=== PATIENT | male | born 1995 ===

== ENCOUNTER 2017-04-15 07:03 | Emergency (ER) | payer SELFPAY ==
[2017-04-15 07:26] VITALS: RESP 20
--- NOTE | 2017-04-15 07:41 | C.PDOC ---
History Of Present Illness 21 y/o male presents to ED with c/o left knee pain since yesterday. Patient reports he twisted his knee while playing basketball. Denies any other injuries , weakness, numbness, or other associated symptoms. Time Seen by Provider: 04/15/17 07:23 Chief Complaint (Nursing): Lower Extremity Problem/Injury History Per: Patient History/Exam Limitations: no limitations Onset/Duration Of Symptoms: Days Current Symptoms Are (Timing): Still Present Severity: Mild Recent travel outside of the [place]: No - Hip Description Of Injury: Fell - Knee Description Of Injury: Twisted Past Medical History Reviewed: Historical Data, Nursing Documentation, Vital Signs Vital Signs: Last Vital Signs Temp 98.1 F 04/15/17 08:39 Pulse 79 04/15/17 08:39 Resp 20 04/15/17 08:39 BP 122/69 04/15/17 08:39 Pulse Ox 97 04/15/17 08:39 - Medical History PMH: No Chronic Diseases Family History: States: Unknown Family Hx - Social History Hx Alcohol Use: No Hx Substance Use: No - Immunization History Hx Tetanus Toxoid Vaccination: No Hx Influenza Vaccination: No Hx Pneumococcal Vaccination: No Review Of Systems Except As Marked, All Systems Reviewed And Found Negative. Constitutional: Negative for: Fever, Chills Musculoskeletal: Positive for: Other (left knee pain) Skin: Negative for: Rash Neurological: Negative for: Weakness, Numbness Physical Exam - Physical Exam Appears: Non-toxic, No Acute Distress Skin: Normal Color, Warm, Dry Head: Atraumatic, Normacephalic Extremity: Normal ROM, Tenderness (left lateral ), Capillary Refill (< 2 sec.), No Deformity, No Swelling Extremity: Bilateral: Normal Color And Temperature Pulses: Left Dorsalis Pedis: Normal, Right Dorsalis Pedis: Normal Neurological/Psych: Oriented x3, Normal Motor, Normal Sensation Gait: Steady ED Course And Treatment O2 Sat by Pulse Oximetry: 99 (RA) Pulse Ox Interpretation: Normal - Other Rad No standard instances X-Ray: Interpreted by Me Interpretation: Knee: no fx Progress Note: Left knee x-rays. Luciano bandage applied to affected area Reassessment Condition: Unchanged Disposition Counseled Patient/Family Regarding: Studies Performed, Diagnosis, Need For Followup - Disposition Referrals: [facility] [place] [Outside] [facility] [Outside] Disposition: HOME/ ROUTINE Disposition Time: 08:10 Condition: STABLE Additional Instructions: Follow up with ortho clinc for further evaluation Luciano bandage and ice to affected area Instructions: Knee Sprain (ED) Forms: [employer] (Yakut), Work Excuse - POA Present On Arrival: None - Clinical Impression Clinical Impression: Knee sprain - 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 - Scribe Statement The provider has reviewed the documentation as recorded by the Scribe SM All medical record entries made by the Scribe were at my direction and personally dictated by me. I have reviewed the chart and agree that the record accurately reflects my personal performance of the history, physical exam, medical decision making, and the department course for this patient. I have also personally directed, reviewed, and agree with the discharge instructions and disposition.
--- NOTE | 2017-04-15 08:00 | RAD ---
PROCEDURE: Left Knee Radiographs. HISTORY: COMPARISON: None available. FINDINGS: BONES: Skeletally immature patient. No acute displaced fracture. JOINTS: No dislocation. JOINT EFFUSION: No significant joint effusion. OTHER FINDINGS: None. IMPRESSION: No acute displaced fracture, dislocation, or significant joint effusion identified. If symptoms persist, or if there is continued clinical concern, x-ray follow-up in 7-10 days should be considered.
[2017-04-15 08:39] VITALS: BP 122/69; PULSE 79; TEMP 98.1
[2017-04-15 10:15] VITALS: O2SAT 99
== END 2017-04-15 08:40 | disposition home or self-care (01) ==
LOC: C.ER 07:03
DX: S83.92XA Sprain of unspecified site of left knee, initial encounter (principal); X50.1XXA Overexertion from prolonged static or awkward postures, initial encounter; Y93.67 Activity, basketball; Y92.89 Other specified places as the place of occurrence of the external cause

== ENCOUNTER 2017-10-07 10:53 | Emergency (ER) | payer OTHER ==
[2017-10-07 10:59] VITALS: BMI 26.4
[2017-10-07 11:03] VITALS: BP 114/72; PULSE 73; RESP 16; TEMP 98.5; O2SAT 98
--- NOTE | 2017-10-07 12:05 | RAD ---
PROCEDURE: Bilateral Knee Radiographs. HISTORY: b/l knee pain, ? trauma COMPARISON: Left knee radiographs dated 04/15/2017. FINDINGS: BONES: Right Knee: No acute fracture. Left Knee: No acute fracture. JOINTS: Right Knee: Unremarkable. Left knee: Unremarkable. SOFT TISSUES: Right Knee: Normal. Left Knee: Normal. JOINT EFFUSION: Right Knee: None. Left Knee: None. OTHER FINDINGS: None. IMPRESSION: No demonstrated fracture or dislocation.
--- NOTE | 2017-10-07 12:09 | C.PDOC ---
History Of Present Illness 22 y/o male presents to the ED for evaluation of right knee pain s/p twisting injury 2 days ago. Patient states that several months ago he also twisted his left knee, was seen here, and had a brace applied. The left knee improved but now when walking a lot, he still has intermittent left knee pain. Patient currently describes bilateral knee pain, right worse than left. No changes in sensation or extremity weakness. Time Seen by Provider: 10/07/17 11:26 Chief Complaint (Nursing): Lower Extremity Problem/Injury History Per: Patient History/Exam Limitations: no limitations Onset/Duration Of Symptoms: Days Current Symptoms Are (Timing): Still Present Past Medical History Reviewed: Historical Data, Nursing Documentation, Vital Signs Vital Signs: Last Vital Signs Temp 98.5 F 10/07/17 10:59 Pulse 73 10/07/17 10:59 Resp 16 10/07/17 10:59 BP 114/72 10/07/17 10:59 Pulse Ox 98 10/07/17 12:09 - Medical History PMH: No Chronic Diseases Surgical History: No Surg Hx Family History: States: Unknown Family Hx - Social History Hx Tobacco Use: No Hx Alcohol Use: Yes Hx Substance Use: No - Immunization History Hx Tetanus Toxoid Vaccination: No Hx Influenza Vaccination: No Hx Pneumococcal Vaccination: No Review Of Systems Except As Marked, All Systems Reviewed And Found Negative. Musculoskeletal: Positive for: Leg Pain (b/l knee pain, R > L) Neurological: Negative for: Weakness, Numbness Physical Exam - Physical Exam Appears: Non-toxic, No Acute Distress Skin: Normal Color, Warm, Dry Head: Atraumatic, Normacephalic Eye(s): bilateral: Normal Inspection Oral Mucosa: Moist Neck: Normal ROM Chest: Symmetrical Respiratory: No Accessory Muscle Use Extremity: Normal ROM (with full ROM of knees), Tenderness (Medial tenderness to right knee), No Deformity, No Swelling (or erythema, warmth) Pulses: Left Dorsalis Pedis: Normal, Right Dorsalis Pedis: Normal Neurological/Psych: Oriented x3, Normal Speech Gait: Steady ED Course And Treatment O2 Sat by Pulse Oximetry: 98 (RA) Pulse Ox Interpretation: Normal - Other Rad XR B/L KNEES X-Ray: Viewed By Me, Read By Radiologist Interpretation: FINDINGS: BONES: Right Knee: No acute fracture. Left Knee: No acute fracture. JOINTS: Right Knee: Unremarkable. Left knee: Unremarkable. SOFT TISSUES: Right Knee: Normal. Left Knee: Normal. JOINT EFFUSION: Right Knee: None. Left Knee: None. OTHER FINDINGS: None. IMPRESSION: No demonstrated fracture or dislocation. Progress Note: Patient given PO Motrin. Informed patient of negative x-ray result. Patient placed in right knee brace. Stable for d/c home. Patient advised to follow up with orthopedics for further evaluation, referral provided. Disposition Counseled Patient/Family Regarding: Studies Performed, Diagnosis, Need For Followup, Rx Given - Disposition Referrals: Jimenez Gurrola MD [Staff Provider] - Disposition: HOME/ ROUTINE Disposition Time: 12:07 Condition: STABLE Additional Instructions: Follow up with PMD and Orthopedist within 1-2 days. Return to ED if feel worse. 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 - Scribe Statement The provider has reviewed the documentation as recorded by the Scribe (Estefanía Taylor) All medical record entries made by the Scribe were at my direction and personally dictated by me. I have reviewed the chart and agree that the record accurately reflects my personal performance of the history, physical exam, medical decision making, and the department course for this patient. I have also personally directed, reviewed, and agree with the discharge instructions and disposition.
== END 2017-10-07 12:14 | disposition home or self-care (01) ==
LOC: C.ER 10:53
DX: S83.91XA Sprain of unspecified site of right knee, initial encounter (principal); X58.XXXA Exposure to other specified factors, initial encounter